=== PATIENT | male | born 1960 | race Caucasian/White ===

== ENCOUNTER → 2019-01-17 | Outpatient (CLI) | payer BC, SELFPAY ==
[2019-01-17 17:59] LABS: PSA,Total - Annual Screen 2.16 ng/mL (0.00-4.00)
== END | disposition home or self-care (01) ==
LOC: LAB 17:00
DX: Z12.5 Encounter for screening for malignant neoplasm of prostate (principal)
CPT/HCPCS: 36415; 84153; G0103

== ENCOUNTER 2019-02-13 11:31 | Day surgery (SDC) | payer BC, SELFPAY ==
[2019-02-04 15:17] VITALS: BP 111/62; PULSE 67; RESP 18; TEMP 36.8; O2SAT 98; BMI 29.4
--- NOTE | 2019-02-04 15:54 | SDCEKG_ITS ---
Test Reason : Blood Pressure : / mmHG Vent. Rate : 064 BPM Atrial Rate : 064 BPM P-R Int : 194 ms QRS Dur : 106 ms QT Int : 394 ms P-R-T Axes : 053 -16 033 degrees QTc Int : 406 ms Normal sinus rhythm Normal ECG Confirmed by BASHIR MARTÍNEZ, KIM ([id number]), editor & co founder SAMANTHA RON ([id number]) on 02/11/2019 11:47:32 AM Referred By: Yo Acosta Confirmed By:KIM CAMEJO MD
[2019-02-04 16:03] LABS: Hematocrit 41.5 % (40-54); Hemoglobin 14.1 g/dL (13.0-16.5); Mean Corpuscular Hgb 32.6 pg (27.0-32.0); Mean Corpuscular Volume 96.1 fL (80-94); Mean Platelet Vol. 9.9 fl (6.2-12.0); Platelet Count 248 K/mm3 (150-450); RBC Distribution Width CV 12.1 % (11.6-14.6); RBC Distribution Width SD 42.9 fl (35.1-43.9); Red Blood Count 4.32 M/mm3 (4.6-6.2); White Blood Count 9.6 K/mm3 (4.4-11.0)
[2019-02-13] VITALS (8 sets, daily range): BP systolic 100–146; BP diastolic 59–76; PULSE 56–85; RESP 16–18; TEMP 36.1–36.8; O2SAT 92–98; BMI 29.4
[2019-02-13] MEDS: Lactated Ringers 1,000 ML 100 ML IV (12:23)
[2019-02-13] MEDS: Cefazolin 2 GM in 0.9% Normal Saline 100 ML IV (12:46)
[2019-02-13] MEDS: Lubricating Jelly 60 GM Tube 30 GM TOPICAL (13:00)
--- NOTE | 2019-02-13 13:30 | DCINST_ITS ---
Discharge Diet: Light diet - advance as tolerated Discharge Activity: Return to Normal Activity Call your doctor if your incision/area has: Continuous Slow Oozing, Sudden Increased Bleeding Suture Line Care: Avoid Pulling/Pushing, Avoid Pinching/Bending Instructions: Transurethral Resection of the Prostate (TURP): Home Recovery Allergies/Adverse Reactions: Allergies No Known Allergies Allergy (Verified 02/04/19 15:10) Medications to take at Discharge Cholecalciferol (Vitamin D3) [Vitamin D3] 1,000 unit PO DAILY 02/04/19 Oxybutynin Chloride [Oxybutynin Chloride ER] 10 mg PO QHS 02/04/19 Tamsulosin HCl [Flomax] 0.4 mg PO BID 02/04/19 Ciprofloxacin [Cipro] 500 mg PO BID #14 tab 02/13/19 Ibuprofen 600 mg PO Q6H PRN PRN #20 tab 02/13/19 The following prescriptions were given: Ciprofloxacin [Cipro] 500 mg PO BID #14 tab Prescription Printed Ibuprofen 600 mg PO Q6H PRN PRN #20 tab PRN Reason: Pain Prescription Printed Primary Care Physician: Lukas Brooks [Primary Care Provider] - Test Results: Test results from this visit will be discussed in further detail at your follow- up appointment, if applicable. Please Follow Up With: Yo Acosta MD When: in 2 weeks, please call to make an appointment. Proposed Discharge Date: 02/14/19
--- NOTE | 2019-02-13 13:31 | PCM.OPRPT ---
Report of Operation Date of Procedure: 02/13/19 Pre-Operative Diagnosis: BPH with obstruction urinary frequency Post-Operative Diagnosis: Same Surgery/Procedure Performed:: Transurethral resection with a button Olympus Description of Surgical Findings:: 58-year-old male taken back to the operating room at the smooth induction of general anesthesia his penis testicles were prepped and draped in usual fashion, went into the bladder with a 21 Iranian rigid cystourethroscope to do a inspection of the anatomy, verumontanum was identified, very short length prostate in the room in the bladder neck, obstructive tissue bilaterally no median lobe, into the bladder identified the left and right ureteral orifice, because of the short length prostate I decided to use the button Olympus to vaporize the tissue. I put in a 24 Iranian noncontinuous flow resectoscope with the button Olympus and basically vaporized at 6 o'clock position working my way from the verumontanum all the way around the prostate to the 12 o'clock position a nice wide open vaporization of the channel took about 30 minutes to this open up. At the end we did a flow test had a decent enough flow sphincter was intact and there was no specimen since I vaporized the channel. After doing this with a catheter into the bladder and continuous bladder irrigation taken back to PACU good condition and tomorrow remove the catheter for voiding trial. Type of Anesthesia:: General Drains: Brooks - Admit VTE Documentation VTE Present on Admission: No VTE Mechan Device Prophylaxis: SCD's
[2019-02-13] MEDS: Ibuprofen 600 MG Tablet PO ×2 (17:15→23:22)
[2019-02-13] MEDS: Tolterodine Tartrate 4 MG CAP.SA PO (17:16)
[2019-02-13] MEDS: 0.9% Normal Saline 1,000 ML 75 ML IV (17:18)
[2019-02-13] MEDS: Tamsulosin HCl 0.4 MG Capsule PO (17:20)
[2019-02-13] MEDS: Docusate Sodium 100 MG Capsule PO (22:00)
[2019-02-13] MEDS: Ciprofloxacin 500 MG Tablet PO (22:00)
[2019-02-14 05:38] VITALS: BP 100/70; PULSE 69; RESP 18; TEMP 36.8; O2SAT 94
[2019-02-14] MEDS: Ibuprofen 600 MG Tablet PO (06:01)
[2019-02-14] MEDS: 0.9% Normal Saline 1,000 ML 75 ML IV (06:01)
[2019-02-14] MEDS: Tamsulosin HCl 0.4 MG Capsule PO (07:32)
[2019-02-14 08:00] VITALS: RESP 18
[2019-02-14 08:37] VITALS: BP 120/78; PULSE 67; RESP 18; TEMP 36.7; O2SAT 97
[2019-02-14] MEDS: Docusate Sodium 100 MG Capsule PO (09:41)
[2019-02-14] MEDS: Pantoprazole Sodium 40 MG Tablet PO (09:41)
[2019-02-14] MEDS: Ciprofloxacin 500 MG Tablet PO (09:41)
[2019-02-14 13:51] VITALS: BP 113/72; PULSE 70; RESP 18; TEMP 37; O2SAT 98
== END 2019-02-14 14:09 | disposition home or self-care (01) ==
LOC: SDC 11:38 → AC 11:38 → MS3 12:45
PROVIDERS: Anesthesiology; Family Provider Family Medicine Geriatric Medicine; PCP Family Medicine Geriatric Medicine; Referring Provider Urology; Visit Provider Urology
PROC: (CPT 52630; principal; 2019-02-13 13:15)
DX: N40.1 Benign prostatic hyperplasia with lower urinary tract symptoms (principal); N39.498 Other specified urinary incontinence; R35.0 Frequency of micturition; R39.11 Hesitancy of micturition; R35.1 Nocturia; R39.12 Poor urinary stream; Z87.891 Personal history of nicotine dependence; Z79.899 Other long term (current) drug therapy
CPT/HCPCS: 52630; 85027; 93005; J7030; J7120; J2405

== ENCOUNTER → 2019-06-06 13:10 | Outpatient (CLI) | payer BC, SELFPAY ==
[2019-02-13 12:02] VITALS: BMI 29.4
--- NOTE | 2019-06-06 13:15 | CT_ITS ---
STUDY: CT ABDOMEN AND PELVIS WITH AND WITHOUT CONTRAST REASON FOR EXAM: Male, 58 years old. Hematuria and increased urinary frequency RADIATION DOSAGE (If Supplied By Facility): CTDIvol = ( 21.56 ) mGy, DLP = ( 3139.56 ) mGycm TECHNIQUE: Transaxial images were obtained from the dome of the diaphragm to the symphysis pubis without oral contrast. 100 ML ISOVUE 370 was administered. Sagittal and coronal images were reconstructed. Individualized dose optimization techniques were used for this CT. COMPARISON: None. FINDINGS: The visualized lung bases are unremarkable. The visualized portions of the heart are within normal limits. The liver is fatty infiltrated without mass or bile duct dilatation.. Normal gallbladder and extrahepatic biliary system. Normal spleen. Normal pancreas. Normal bilateral adrenal glands. There is mild right renal pelvocaliectasis in association with dilated extrarenal pelvis consistent with UPJ obstruction without evidence for ureteral calculus possibly due to scarring or developmental... Normal left kidney. Normal visualized stomach. Normal small intestine. Minor diverticular changes of the distal descending and sigmoid colon without evidence for acute diverticulitis Appendix not visualized which may be consistent with prior appendectomy. Mild atherosclerotic changes of the aorta without evidence for aneurysm.. Normal inferior vena cava. Normal retroperitoneum. Incompletely distended thick-walled bladder of uncertain significance Mild nonspecific prominence of the prostate. Normal abdominal wall. Lumbar spine demonstrates moderate spondylosis. Grade [address]hesis L5-S1.. CT/CT Abd/Pelvis W/WO Contrast IMPRESSION: Mild right hydronephrosis in association with extrarenal pelvis and. UPJ obstruction without ureteral calculus. Mild nonspecific prominence of the prostate and incompletely distended mildly thick-walled bladder of uncertain significance although may be consistent with cystitis. Electronically Signed: Yaron Ware MD at 20:27 EST , Service support ,
== END ==
PROVIDERS: Family Provider Family Medicine Geriatric Medicine; PCP Family Medicine Geriatric Medicine; Referring Provider Urology; Visit Provider Urology
DX: R31.9 Hematuria, unspecified (principal)
CPT/HCPCS: 74178; Q9967